=== PATIENT | female | born 1940 | race American Indian/Alaskan Native ===

== ENCOUNTER 2020-09-15 15:33 | Observation (INO) | payer MEDICARE ==
--- NOTE | 2020-09-15 16:40 | Emergency Department Report ---
ED Abdominal Pain HPI - General Chief Complaint: Abdominal Pain Stated Complaint: GROIN PAINS Time Seen by Provider: 09/15/20 16:24 Source: EMS Mode of arrival: Stretcher Limitations: No Limitations - History of Present Illness Initial Comments: 80-year-old female, history of lupus, hypertension, diabetes, chronic back pain with neurostimulator, presents to the ED with complaint of abdominal pain. Patient reports 3 to 4-day history of left lower quadrant pain with associated nausea and vomiting. Patient denies any fever, diarrhea, constipation, urinary frequency, hematuria, dysuria. Patient states she is also having pain in the area of her neurostimulator which is located in her left hip. Patient was seen at an urgent care on yesterday and given naproxen for pain. She states no tests were done. MD Complaint: abdominal pain -: days(s) (4) Location: LLQ Migration to: other (Left hip) Severity scale (0 -10): 8 Quality: dull Consistency: intermittent Improves With: nothing Worsens With: nothing Associated Symptoms: nausea, vomiting. denies: diarrhea, fever, chills, constipation, dysuria, hematuria - Related Data Allergies Allergy/AdvReac Type Severity Reaction Status Date / Time Penicillins Allergy Unknown Verified 09/15/20 16:15 ED Review of Systems ROS: Stated complaint: GROIN PAINS Other details as noted in HPI Comment: All other systems reviewed and negative Constitutional: denies: chills, fever Gastrointestinal: abdominal pain, nausea, vomiting. denies: diarrhea, constipation Genitourinary: denies: dysuria, frequency, hematuria Musculoskeletal: other ED Past Medical Hx - Past Medical History Previous Medical History?: Yes Hx Hypertension: Yes - Social History Smoking Status: Unknown if ever smoked ED Physical Exam - General Limitations: No Limitations General appearance: alert, in no apparent distress - Head Head exam: Present: atraumatic, normocephalic - Eye Eye exam: Present: normal appearance, EOMI - ENT ENT exam: Present: mucous membranes moist - Neck Neck exam: Present: normal inspection - Respiratory Respiratory exam: Present: normal lung sounds bilaterally. Absent: respiratory distress - Cardiovascular Cardiovascular Exam: Present: normal rhythm, tachycardia - GI/Abdominal GI/Abdominal exam: Present: soft. Absent: distended, tenderness - Extremities Exam Extremities exam: Present: normal inspection, other (tenderness to posterior left hip over area of neurostimulator) - Back Exam Back exam: Absent: CVA tenderness (R), CVA tenderness (L) - Neurological Exam Neurological exam: Present: alert, oriented X3 - Psychiatric Psychiatric exam: Present: normal affect, normal mood - Skin Skin exam: Present: warm, dry, intact, normal color ED Course Vital Signs 09/15/20 09/15/20 09/15/20 15:58 16:00 17:52 Temperature 98.1 F Pulse Rate 110 H 100 H Respiratory 18 18 20 Rate Blood Pressure 184/92 Blood Pressure 184/92 168/62 [Left] O2 Sat by Pulse 98 98 97 Oximetry 09/15/20 09/15/20 09/15/20 18:00 18:26 18:47 Temperature Pulse Rate Respiratory 20 18 16 Rate Blood Pressure Blood Pressure [Left] O2 Sat by Pulse Oximetry 09/15/20 09/15/20 09/15/20 19:17 20:00 20:30 Temperature 98.0 F Pulse Rate 107 H 102 H Respiratory 18 18 18 Rate Blood Pressure Blood Pressure 178/81 161/77 [Left] O2 Sat by Pulse 96 95 Oximetry 09/15/20 09/15/20 09/15/20 20:40 21:00 21:31 Temperature Pulse Rate 99 H 98 H Respiratory 18 18 9 L Rate Blood Pressure Blood Pressure 167/83 [Left] O2 Sat by Pulse 96 96 Oximetry 09/15/20 09/15/20 09/15/20 21:46 22:00 22:16 Temperature Pulse Rate 98 H 98 H 97 H Respiratory 10 L 9 L 9 L Rate Blood Pressure Blood Pressure [Left] O2 Sat by Pulse 95 95 94 Oximetry 09/15/20 09/15/20 09/15/20 22:30 22:45 23:00 Temperature Pulse Rate 103 H 101 H 96 H Respiratory 12 17 13 Rate Blood Pressure 151/84 147/71 Blood Pressure [Left] O2 Sat by Pulse 99 Oximetry 09/15/20 09/15/20 09/15/20 23:15 23:30 23:45 Temperature Pulse Rate 96 H 96 H 94 H Respiratory 16 8 L 10 L Rate Blood Pressure 143/73 135/63 151/77 Blood Pressure [Left] O2 Sat by Pulse 94 Oximetry 09/16/20 09/16/20 09/16/20 00:00 00:15 00:30 Temperature Pulse Rate 94 H 92 H 90 Respiratory 14 13 17 Rate Blood Pressure 150/109 144/70 136/67 Blood Pressure [Left] O2 Sat by Pulse Oximetry 09/16/20 00:46 Temperature Pulse Rate Respiratory 12 Rate Blood Pressure 147/67 Blood Pressure [Left] O2 Sat by Pulse 99 Oximetry ED Medical Decision Making - Lab Data Result diagrams: 09/15/20 16:53 09/15/20 22:26 - Radiology Data Radiology results: report reviewed, image reviewed - Medical Decision Making 80-year-old female presents to ED with left lower quadrant pain and pain in her left posterior hip over the site of her neurostimulator device x3 days. Patient afebrile, slightly tachycardic upon initial presentation. She reports some associated vomiting with this pain. She denies any urinary symptoms. CT abdomen pelvis does not show any acute abnormalities that would explain patient's left abdominal pain. Radiology report states that lung bases show patchy groundglass opacity and atelectasis/scarring. Low suspicion for p neumonia. Patient denies any fever, cough, or shortness of breath. Patient is afebrile. WBCs are normal. Chemistry initially showed a potassium of 5.1 with some accompanying renal insufficiency and slight metabolic acidosis. Patient was given 1 L bolus of IV fluids and chemistry was repeated. Potassium now elevated to 5.6. Patient will be admitted to hospitalist, Dr Billings, for acute renal insufficiency and hyperkalemia. She has been given insulin, D50, calcium chloride, and Kayexalate. Patient also has evidence of UTI has been given Levaquin. - Differential Diagnosis Diverticulitis, pyelonephritis, UTI Critical Care Time: Yes Critical care time in (mins) excluding proc time.: 35 Critical care attestation.: If time is entered above; I have spent that time in minutes in the direct care of this critically ill patient, excluding procedure time. Critical Care Time: 35 min ED Disposition Clinical Impression: UTI (urinary tract infection), Constipation, Hyperkalemia, Acute renal failure, Flank pain Disposition: OP ADMIT IP TO THIS HOSP Is pt being admited?: Yes Condition: Stable Time of Disposition: 00:01
[2020-09-15 17:25] LABS: Basophils % (Auto) 0.4 % (0.0-1.8); Eosinophils % (Auto) 0.9 % (0.0-4.3); Hematocrit 32.3 % (30.3-42.9); Hemoglobin 10.6 gm/dl (10.1-14.3); Lymphocytes # (Auto) 1.2 K/mm3 (1.2-5.4); Lymphocytes % (Auto) 24.5 % (13.4-35.0); Mean Corpuscular HGB Conc 33 % (30-34); Mean Corpuscular Volume 85 fl (79-97); Monocytes # (Auto) 0.4 K/mm3 (0.0-0.8); Monocytes % (Auto) 8.3 % (0.0-7.3); Platelet Count 203 K/mm3 (140-440); Red Blood Count 3.81 M/mm3 (3.65-5.03)
[2020-09-15] MEDS ORDERED: MORPHINE 2 MG/1 ML INJ ONE (17:59)
[2020-09-15] MEDS ORDERED: MORPHINE 2 MG/1 ML INJ IV ONE ×2 (17:59→18:44)
[2020-09-15 18:21] LABS: Bacteria,Urine 1+ /HPF (Negative); Bilirubin,Urine NEG (Negative); Blood,Urine NEG (Negative); Color,Urine Yellow (Yellow); Mucus,Urine FEW /HPF; Protein,Urine <15 mg/dL mg/dL (Negative); Urobilinogen,Urine < 2.0 mg/dL (<2.0)
--- NOTE | 2020-09-15 18:47 | Cat Scan Report ---
CT ABDOMEN AND PELVIS WITH CONTRAST INDICATION / CLINICAL INFORMATION: LLQ pain. TECHNIQUE: Axial CT images were obtained through the abdomen and pelvis after 100 cc Omni [address]. [address] scans at this location are performed using CT dose reduction for ALARA by means of automated expos ure control. COMPARISON: None available. FINDINGS: LOWER CHEST: Mild bibasilar patchy groundglass opacity and atelectasis/scarring. HEPATOBILIARY: No focal hepatic abnormality. Moderately distended gallbladder without significant gale iary ductal dilatation. No cholelithiasis. PANCREAS/SPLEEN/ADRENALS: No significant abnormality. GENITOURINARY: 5.2 cm right renal cyst at the superior pole and smaller cyst at the inferior pole. Bi lateral renal appearance is that of chronic medical renal disease. No obstructive uropathy. 2 mm righ t-sided nonobstructing nephrolith. Visualized ureters demonstrate no significant abnormality. Bladder is not visualized secondary to artifact from bilateral hip arthroplasties. GASTROINTESTINAL/MESENTERY: Small section of the sigmoid colon is not visualized secondary to artifac t from the bilateral total hip arthroplasties. Visualized: Demonstrates a moderate amount of stool lacey ggesting constipation. Visualized bowel demonstrates no evidence of obstruction or inflammation. No f ree air or significant free fluid is visualized. RETROPERITONEUM: No significant adenopathy. REPRODUCTIVE ORGANS: The pelvis is obscured by artifact from bilateral total hip arthroplasties. No s ignificant abnormality, otherwise. VASCULAR: Moderate atherosclerotic calcification without acute abnormality. BODY WALL: No significant abnormality. SKELETAL SYSTEM: Postoperative change of spinal stimulator placement. Postoperative change of posteri or fusion hardware without definite significant abnormality. 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 No fracture or aggressive osseous lesion is evident. IMPRESSION: 1. Mild bibasilar patchy groundglass opacities. Early/developing atypical/viral pneumonia not exclude d. Recommend clinical correlation and continued follow-up as warranted. 2. Small right renal cysts and punctate right-sided nonobstructing nephrolith. 3. Findings suggestive of constipation. Deep pelvis bowel is not completely evaluated secondary to ar tifact from hip hardware. 4. Additional findings as above. Signer Name: Hu Llanes MD Signed: 09/15/2020 6:43 PM Workstation Name: [id number]
[2020-09-15] MEDS ORDERED: SODIUM CHLORIDE 0.9% 1000 ML 1,000 ML IV ONE (20:02)
[2020-09-15] MEDS ORDERED: HYDROcodone/ACETAMINOPHEN 5-325 MG TAB PO ONE (20:07)
[2020-09-15 23:09] LABS: Calcium 9.4 mg/dL (8.4-10.2)
[2020-09-15] MEDS ORDERED: levoFLOXacin 500 MG TAB PO ONE (23:55)
[2020-09-15] MEDS ORDERED: INSULIN REGULAR, HUMAN 100 UNIT/ML 3ML VIAL IV ONE (23:56)
[2020-09-15] MEDS ORDERED: DEXTROSE 50% IN WATER (25GM) 50 ML SYRINGE IV ONE (23:56)
[2020-09-15] MEDS ORDERED: SODIUM POLYSTYRENE 15 GM/60 ML ORAL LIQD PO ONE (23:56)
[2020-09-15] MEDS ORDERED: CALCIUM CHLORIDE 1,000 MG/10 ML SYRINGE IV ONE (23:57)
--- NOTE | 2020-09-16 00:19 | History and Physical Report ---
History of Present Illness Date of examination: 09/15/20 Date of admission: 09/15/20 Chief complaint: Abdominal Pain UTI History of present illness: 80-year-old female, history of lupus, hypertension, diabetes, chronic back pain with neurostimulator, presents to the ED with complaint of abdominal pain. Patient reports 3 to 4-day history of left lower quadrant pain with associated nausea and vomiting. Patient denies any fever, diarrhea, constipation, urinary frequency, hematuria, dysuria. Patient states she is also having pain in the area of her neurostimulator which is located in her left hip. Patient was seen at an urgent care on yesterday and given naproxen for pain. She states no tests were done. Patient seen at bedside in ED. Reviewed lab, mar, and v/s. Patient reports low back pain, flank pain and urine requency and urgency. Urinalysis is done-patient has urine elevated WBC-started on abx Elevated potassium-calcium chloride, dextrose and regular insulin and kayaxalete given in ED. Patient denies tobacco, alcohol, and illicit drug use ED work up shows WBC 4.8, hemoglobin 10.6, PLT 203, Sodium, 137 and 136, Potassium 5.1 and 5.6, Cr 1.5 CT of the abdomen/pelvis-showed no acute finding. Past History Past Medical History: hypertension, other (back pain) Past Surgical History: Other (Back surgery) Social history: no significant social history Family history: diabetes (Mom had hypertension and diabetes. Father had hyperten coby), hypertension Medications and Allergies Allergies Allergy/AdvReac Type Severity Reaction Status Date / Time Penicillins Allergy Unknown Verified 09/15/20 16:15 Review of Systems Constitutional: chronic pain, other (Back pain) Ears, nose, mouth and throat: no epistaxis Breasts: no discharge Cardiovascular: no chest pain, no orthopnea Respiratory: no dyspnea on exertion Gastrointestinal: abdominal pain, nausea, vomiting Genitourinary Female: flank pain, urinary frequency Menstruation: postmenopausal Rectal: no hemorrhoids Musculoskeletal: low back pain, no neck stiffness Integumentary: no wounds Neurological: no head injury Psychiatric: anxiety, no suicidal ideation Hematologic/Lymphatic: no easy bruising Allergic/Immunologic: no anaphylaxis Exam - Constitutional Vitals: Temp Pulse Resp BP Pulse Ox 98.0 F 99 H 18 167/83 96 09/15/20 20:00 09/15/20 21:00 09/15/20 21:00 09/15/20 21:00 09/15/20 21:00 General appearance: Present: mild distress, well-nourished, other (back pain) - EENT Eyes: Present: PERRL ENT: hearing intact, clear oral mucosa - Neck Neck: Present: supple, normal ROM - Respiratory Respiratory effort: normal Respiratory: bilateral: CTA - Cardiovascular Heart rate: 99 Heart Sounds: Present: S1 & S2. Absent: rub, click - Extremities Extremities: pulses symmetrical, No edema Peripheral Pulses: within normal limits - Abdominal General gastrointestinal: Present: soft, non-tender, non-distended, normal bowel sounds Female genitourinary: Present: normal - Integumentary Integumentary: Present: clear, warm, dry - Musculoskeletal Musculoskeletal: gait normal, strength equal bilaterally - Psychiatric Psychiatric: appropriate mood/affect, intact judgment & insight - Neurologic Neurologic: CNII-XII intact, moves all extremities - Allied Health Allied health notes reviewed: nursing Results - Labs CBC & Chem 7: 09/15/20 16:53 09/15/20 22:26 Labs: Abnormal lab results 09/15/20 09/15/20 09/15/20 Range/Units 16:53 16:53 17:52 RDW 17.0 H (13.2-15.2) % Cedar % (Auto) 8.3 H (0.0-7.3) % Sodium (137-145) mmol/L Potassium 5.1 H (3.6-5.0) mmol/L Carbon Dioxide 18 L (22-30) mmol/L BUN 28 H (7-17) mg/dL Creatinine 1.5 H (0.6-1.2) mg/dL Urine WBC (Auto) 34.0 H (0.0-6.0) /HPF 09/15/20 Range/Units 22:26 RDW (13.2-15.2) % Cedar % (Auto) (0.0-7.3) % Sodium 136 L (137-145) mmol/L Potassium 5.6 H (3.6-5.0) mmol/L Carbon Dioxide 18 L (22-30) mmol/L BUN 26 H (7-17) mg/dL Creatinine 1.5 H (0.6-1.2) mg/dL Urine WBC (Auto) (0.0-6.0) /HPF Assessment and Plan - Patient Problems (1) UTI (urinary tract infection) Current Visit: Yes Status: Acute Plan to address problem: Urine culture, IV hydration, Start IV Levaquin-pt allergic to PCN (2) Flank pain Current Visit: Yes Status: Acute Plan to address problem: mostly 2/2 to UTI Pain management CT of abdomen/pelvis-negative for acute process Urine and blood culture-f/u with result (3) Acute renal failure Current Visit: Yes Status: Acute Plan to address problem: ? cause/dehydration/UTI Continue IV hydration monitor kidney function-avoid nephrotoxic drugs Renal dose all drugs (4) Hyperkalemia Current Visit: Yes Status: Acute Plan to address problem: ? cause/RENEE calcium chloride, dextrose with 10 unit regular insulin, and kayexalate given in ED Monitor electrolytes-am BMP, phosphate, and mag (5) Hypertension Current Visit: Yes Status: Acute Plan to address problem: Patient has history of high blood pressure and on home med Monitor blood pressure Resume home BP med Lopressor and losartan Adjust BP Med if needed (6) DVT prophylaxis Current Visit: Yes Status: Acute Plan to address problem: SQH abd SCD
[2020-09-16] MEDS ORDERED: ONDANSETRON 4 MG/2 ML INJ IV PRN (00:30)
[2020-09-16] MEDS ORDERED: LACTULOSE 20 GM/30 ML ORAL LIQD PO PRN (00:30)
[2020-09-16] MEDS ORDERED: ALUM-MAG HYDROXIDE-SIMETHICONE 200-200-20MG/5ML ORAL LIQD 30 ML PO PRN (00:30)
[2020-09-16] MEDS ORDERED: traZODone 50 MG TAB PO PRN (00:30)
[2020-09-16] MEDS ORDERED: hydrALAZINE 20 MG/1 ML INJ IV PRN ×2 (00:31→04:10)
[2020-09-16] MEDS ORDERED: ACETAMINOPHEN 325 MG TAB PO PRN (00:33)
[2020-09-16] MEDS ORDERED: HYDROmorphone 1 MG/1 ML INJ IV PRN (00:33)
[2020-09-16] MEDS ORDERED: SODIUM CHLORIDE 0.9% 1000 ML 1,000 ML IV SCH (01:00)
[2020-09-16] MEDS ORDERED: INSULIN REGULAR, HUMAN 100 UNITS/1 ML ONE (01:00)
[2020-09-16 02:52] LABS: Osmolality,Urine 408 Mosm/kg
[2020-09-16] MEDS: FAMOTIDINE 20 MG/2 ML INJ IV SCH (10:41)
[2020-09-16] MEDS: METOPROLOL TARTRATE 50 MG TAB PO SCH ×2 (10:41→21:31)
[2020-09-16] MEDS: LOSARTAN 50 MG TAB PO SCH (10:41)
[2020-09-16] MEDS: HEPARIN 5,000 UNIT/1 ML VIAL SUB-Q SCH ×2 (11:00→21:32)
[2020-09-16 14:48] LABS: Basophils % (Auto) 0.6 % (0.0-1.8); Eosinophils # (Auto) 0.1 K/mm3 (0.0-0.4); Hematocrit 29.9 % (30.3-42.9); Hemoglobin 9.5 gm/dl (10.1-14.3); Lymphocytes # (Auto) 1.6 K/mm3 (1.2-5.4); Lymphocytes % (Auto) 36.2 % (13.4-35.0); Mean Corpuscular HGB Conc 32 % (30-34); Mean Corpuscular Volume 85 fl (79-97); Monocytes # (Auto) 0.4 K/mm3 (0.0-0.8); Monocytes % (Auto) 8.7 % (0.0-7.3); Platelet Count 212 K/mm3 (140-440); Red Blood Count 3.52 M/mm3 (3.65-5.03); Red Cell Distribution Width 16.6 % (13.2-15.2)
[2020-09-16 14:59] LABS: Calcium 9.6 mg/dL (8.4-10.2)
--- NOTE | 2020-09-16 15:02 | Event Note ---
Date: 09/16/20 Patient seen and reevaluated Patient has RENEE and urinary tract infection If better patient may be discharged tomorrow
[2020-09-16] MEDS: HYDROcodone/ACETAMINOPHEN 5-325 MG TAB PO PRN (20:09)
[2020-09-17] MEDS: HYDROcodone/ACETAMINOPHEN 5-325 MG TAB PO PRN ×3 (02:15→16:41)
[2020-09-17 06:15] LABS: Basophils % (Auto) 0.4 % (0.0-1.8); Eosinophils # (Auto) 0.1 K/mm3 (0.0-0.4); Eosinophils % (Auto) 3.4 % (0.0-4.3); Hematocrit 31.7 % (30.3-42.9); Hemoglobin 9.9 gm/dl (10.1-14.3); Lymphocytes # (Auto) 1.8 K/mm3 (1.2-5.4); Lymphocytes % (Auto) 41.5 % (13.4-35.0); Mean Corpuscular HGB Conc 31 % (30-34); Mean Corpuscular Volume 87 fl (79-97); Monocytes # (Auto) 0.4 K/mm3 (0.0-0.8); Monocytes % (Auto) 8.6 % (0.0-7.3); Platelet Count 202 K/mm3 (140-440); Red Blood Count 3.65 M/mm3 (3.65-5.03); Red Cell Distribution Width 16.6 % (13.2-15.2)
[2020-09-17 06:34] LABS: Albumin 3.8 g/dL (3.9-5); Calcium 9.9 mg/dL (8.4-10.2)
[2020-09-17] MEDS: METOPROLOL TARTRATE 50 MG TAB PO SCH (10:34)
[2020-09-17] MEDS: LOSARTAN 50 MG TAB PO SCH (10:35)
[2020-09-17] MEDS: FAMOTIDINE 20 MG/2 ML INJ IV SCH (10:35)
[2020-09-17] MEDS: HEPARIN 5,000 UNIT/1 ML VIAL SUB-Q SCH (10:36)
--- NOTE | 2020-09-17 14:48 | Discharge Summary ---
Providers - Providers Date of Admission: 09/16/20 00:06 Date of discharge: 09/17/20 Attending physician: EVERT CARBAJAL Primary care physician: [employer] Hospitalization Condition: Stable Disposition: DC-01 TO HOME OR SELFCARE Time spent for discharge: 32 min Core Measure Documentation - Palliative Care Palliative Care/ Comfort Measures: Not Applicable - Core Measures Any of the following diagnoses?: none Exam - Constitutional Vitals: Temp Pulse Resp BP Pulse Ox 98.0 F 92 H 18 158/69 95 09/17/20 11:13 09/17/20 11:13 09/17/20 11:13 09/17/20 11:13 09/17/20 11:13 Plan Activity: advance as tolerated, fall precautions Diet: regular Additional Instructions: If you have worsening symptoms contact MD or go to emergency room. Fall precautions. Advised plenty oral fluids Follow up with: PRIMARY CARE, [Primary Care Provider] - 3-5 Days Prescriptions: Fosfomycin Tromethamine [Monurol] 3 gm PO Q48HR #3 packet Famotidine [Pepcid] 20 mg PO QAM #14 tablet
[2020-09-17 16:46] VITALS: BP 173/84
[2020-09-18] MEDS ORDERED: FAMOTIDINE 20 MG TAB PO SCH (10:00)
== END 2020-09-17 19:00 | disposition home or self-care (01) ==
LOC: EDBD → ED 15:33 → 4A 09-16 00:06
PROVIDERS: ADMIT Internal Medicine Geriatric Medicine; ATTEND Internal Medicine
DX: N17.9 Acute kidney failure, unspecified (principal); N39.0 Urinary tract infection, site not specified; I10 Essential (primary) hypertension; E87.5 Hyperkalemia; K59.00 Constipation, unspecified; M32.9 Systemic lupus erythematosus, unspecified; E11.9 Type 2 diabetes mellitus without complications; M54.9 Dorsalgia, unspecified; G89.29 Other chronic pain; Z98.890 Other specified postprocedural states
CPT/HCPCS: 36415; 74177; 80048; 80053; 81001; 83036; 83735; 83935; 84100; 84300; 85025; 87076; 87086; 87186; 93005; 96361; 96365; 96372; 96375; 96376; 99291; G0378; J1644; J1956; J2270; J2405; J7030; Q9967; J1815